=== PATIENT | female | born 1990 | race African-American/Black ===

== ENCOUNTER 2018-11-17 03:26 | Inpatient (IN) | payer SELFPAY ==
[2018-11-17 04:16] LABS: Hematocrit 33 % (33-41); Hemoglobin 10.2 g/dL (12.0-16.0)
[2018-11-17] MEDS ORDERED: Buffered Lidocaine 1% SYRIN* 1 ML/SYRINGE INTRADERM ONE (04:17)
[2018-11-17] MEDS ORDERED: Penicillin G Potassium IV* 5,000,000 UNITS in NS 0.9% 100 ML* 100 ML IVPB ONE (04:17)
[2018-11-17] MEDS ORDERED: Lactated Ringers 1000 ML Bag* 1,000 ML IV ONE ×2 (04:17→12:57)
[2018-11-17] MEDS ORDERED: Promethazine INJ(RESTRICTED)* 25 MG/ML 1 ML VIAL IV ONE (04:27)
--- NOTE | 2018-11-17 04:38 | HP ---
General Information - Reason for Visit IUP@41+2 in labor - General Information Maternal Age: 28 Grav: 1 Para: 0 SAB: 0 IEA: 0 Estimated Due Date: 11/08/18 Determined By: LMP Gestational Age in Weeks/Days: 41+2 Maternal Blood Type and Rh: O Positive - Results this Serology/RPR Result: Non-Reactive Rubella Result: Non-Immune HBsAg Result: Negative HIV Result: Negative GBS Culture Result: Positive Past Medical History Pertinent Past Medical History: See Records - Rubella non-immune Past Medical History Comment: Migraine Pertinent Past Surgical History: None Pertinent Family History: See Records Family History Comment: Father: asthma Mother: Diabetes, HTN - Antepartal Records Antepartal Records: Reviewed, Uncomplicated Review of Systems Constitutional: Uncomfortable CV Complaint: No Respiratory: Shortness of Breath: No Gastrointestinal: No Nausea/Vomiting Genitourinary: No Dysuria, No Bleeding, No Leaking Fluid Musculoskeletal: No Epigastric Pain, Contractions Neurological: No Headache, No Visual Changes Movement: Normal Exam Allergies/Adverse Reactions: Allergies codeine Allergy (Intermediate, Verified 11/17/18 04:07) Palpitations Vital Signs 11/17/18 04:16 Temperature 98.7 F Pulse Rate 79 Respiratory 20 Rate Blood Pressure 141/80 (mmHg) O2 Sat by Pulse 100 Oximetry Lab Values - Entire Visit: Laboratory Tests 11/17/18 11/17/18 03:58 03:58 Hgb 10.2 L Hct 33 Blood Type O Positive - Measurements Height: 5 ft 4.96 in Weight: 163 lb 2.273 oz Weight in lbs: 163.778956 Body Mass Index (BMI): 27.1 Pre- Weight: 163 lb 2.273 oz Weight Gained This : 0 lbs and 0 ozs - Exam Breast: Breast Exam Deferred CVA: No CVA Tenderness Extremities: No Edema Heart: Normal Rhythm/Heart Sounds HEENT: No Significant Findings Lungs: Clear Bilaterally Rectal: Rectal Exam Deferred Reflexes: DTR 2+ Thyroid: No Thyromegaly - Abdominal Exam Abdomen Exam: Non-Tender, Fundal Height Consistent with Dates - Ultrasound/Biophysical Profile Ultrasound Status: Not Done Targeted Exam Findings Estimated Weight: 7.5-8lbs Cervical Exam: 3cm - VE completed by RN Effacement: 100% Station: -2 Presenting Part: Vertex Membrane Status: Intact Bleeding/Discharge: None EFM Findings - External Monitor Findings Baseline Heart Rate: 135 External Monitor Findings: Accelerations Present, No Pattern of Variable or Late Decelerations, Variability Moderate External Monitor Findings Comment: No evidence of metabolic acidemia Contractions: Regular, Moderate, 45-90 Seconds, >90 Seconds - q2-3 Contraction Frequency: q6 Assessment/Plan - Assessment IUP@41+2 in labor GBS positive BPs 140s/80s - in pain/distress Rubella non-immune Regular contractions No evidence of metabolic acidemia IBOW - Obstetrical Risk Factors Obstetrical Risk Factors: GBS Positive, Post-Dates - Plan Plan: Antibiotic Prophylaxis, Admit - Anticipate Vaginal Delivery Plan Comment: Admit to L&D IV phenergan for therapeutic rest (allergy to Codeine) Abx for GBS prophylaxis Anticipate progression to - Date/Time of Admission Date of Admission: 11/17/18 Time of Admission: 04:00
[2018-11-17] MEDS: Lactated Ringers 1000 ML Bag* 1,000 ML IV SCH ×3 (04:56→23:42)
--- NOTE | 2018-11-17 07:33 | PN ---
Progress Note - Progress Note Date of Service: 11/17/18 Note: SOAP: Subjective: Pt uncomfortable with contractions. Able to sleep between contractions following phenergan IV push. at bedside. Pt states she feels pressure. Objective: VSS VE 4/100/-1, bulging bag FHR 135 Contractions q5-7 Assessment: Coping with contractions Making cervical change Abx infused for GBS prophylaxis Plan: Discussed risks vs benefits of nitrous oxide vs epidural. Pt is undecided at this point, but will likely opt for an epidural. VE PRN Anticipate progression to
[2018-11-17] MEDS: Penicillin G Potassium IV* 2,500,000 UNITS in NS 0.9% 100 ML* 100 ML IVPB SCH ×4 (09:19→21:35)
--- NOTE | 2018-11-17 09:46 | PN ---
Progress Note - Progress Note Date of Service: 11/17/18 Note: S: Ninfa is laboring in the tub, very uncomfortable with UCs but sleepy/able to rest in between. States she is feeling tired and would like to eat breakfast to get some energy. O: VS: B/P: 136/81, P: 85, RR: 18, T: 99.8 FHR: 150, moderate variability +accels, one isolated variable deceleration ( resolved with position change per RN) UCs: q2.5-3 minutes, moderate VE deferred second dose of PCN for GBS prophylaxis infusing A: IUP at 41 2/7 weeks Early labor P: Discussed pain management options, would like epidural after she has eaten breakfast Consider AROM after she is comfortable with epidural Continue prophylaxis for GBS per protocol Anticipate
[2018-11-17] MEDS ORDERED: OBEPIDURAL* 250 ML EPIDURAL ONE (12:09)
[2018-11-17] MEDS ORDERED: fentaNYL* 50 MCG/ML 2 ML VIAL (100 MCG VIAL) ONE (12:29)
[2018-11-17 12:34] LABS: Mean Corpuscular HGB Conc 32 g/dL (31-36); Mean Corpuscular Hemoglobin 24 pg (27-31); Mean Corpuscular Volume 77 fL (80-97); Mean Platelet Volume 11.6 fL (7.4-10.4); Platelet Count 209 10^3/uL (150-450); Red Blood Count 4.24 10^6 /uL (3.70-4.87); Red Cell Distribution Width 15 % (10.5-15); White Blood Count 14.3 10^3/uL (3.5-10.8)
[2018-11-17] MEDS ORDERED: Phenylephrine 40 MCG/ML SYRINGE IV PUSH PRN ×2 (12:57)
[2018-11-17] MEDS ORDERED: Famotidine TAB* 20 MG PO PRN (12:57)
[2018-11-17] MEDS ORDERED: Sodium Citrate/Citric Acid* 15 ML UDC PO PRN (12:57)
[2018-11-17] MEDS ORDERED: OBEPIDURAL* 250 ML EPIDURAL SCH (13:00)
[2018-11-17] MEDS ORDERED: Lactated Ringers 1000 ML Bag* 1,000 ML IV SCH (13:00)
[2018-11-17 13:19] LABS: ABS Basophils 0.1 10^3/ul (0-0.2); ABS Eosinophils 0 10^3/ul (0-0.6); ABS Lymphocytes 1.5 10^3/ul (1.0-4.8); ABS Neutrophils 11.7 10^3/ul (1.5-7.7); ABS Nucleated RBC 0 10^3/ul; Eosinophil % 0.1 %; Lymphocyte % 10.5 %; Nucleated Red Blood Cells % 0.1
--- NOTE | 2018-11-17 13:22 | PN ---
Progress Note - Progress Note Date of Service: 11/17/18 Note: S: Ninfa is resting comfortably after placement of CEI by Dr. Norris. Reports sensation in her thighs but not her abdomen. O: VS: B/P: 119/67, P: 77, RR: 18, T: 99.8 FHR: 140, moderate variability, prolonged deceleration lasting 11 minutes down to 85 bpm at lowest point while at bedside. UCs: q3-5 by palpation, not tracing well VE: 5.5/90/0 A: IUP at 41 2/7 weeks Category II FHR - resolved with position changes, 02 by mask, and placement of tristan catheter GBS positive P: Allow FHR to recover following deceleration prior to additional interventions Will re-assess in 30 minutes or sooner as needed
--- NOTE | 2018-11-17 13:38 | PN ---
Progress Note - Progress Note Date of Service: 11/17/18 Note: Quick note: FHR recovered from prolonged decel. 145, moderate variability, +accels, no decelerations UCs q 4-4.5 min Discussed AROM to encourage labor progress, Ninfa accepts VE: 5.5/90/0, vertex AROM of thin meconium Monitor for 30 minutes, will consider IV Pitocin Anticipate Dr. Valerio in-house and aware of pt condition/care plan
--- NOTE | 2018-11-17 14:51 | PN ---
Progress Note - Progress Note Date of Service: 11/17/18 Note: S: Sleeping through UCs, says she is unable to feel them. at bedside. O: B/P: 113/71 T: 98.8 R: 18 P: 89 FHR: 145, moderate variability, +accelerations, no decelerations UCs: q4-8 min, lasting 100-150s A: IUP at 41 2/7 weeks Category I FHR, no evidence of metabolic acidemia Early active labor P: Discussed augmentation with IV pitocin at length, including cost of medication. Patient agrees to trial. Initiate pitocin, titrate per protocol Anticipate
[2018-11-17] MEDS ORDERED: Oxytocin in LR* 20 UNITS/1,000 ML BAG IVPB SCH (15:00)
--- NOTE | 2018-11-17 16:51 | PN ---
Progress Note - Progress Note Date of Service: 11/17/18 Note: Comfortable with epidural. Pitocin at 4 mu/min. Contractions every 2-3 FHTs 145, mod variability, accels present Cervix: 7-8cm/100%, with ant lip, vtx +1 Will await full dilation, urge to push
--- NOTE | 2018-11-17 19:57 | PN ---
Progress Note - Progress Note Date of Service: 11/17/18 Note: Feeling pressure, with n/v contractions q 2-3, have decreased pitocin to 2mu/min Cervix: 8-9cm/100/vtx+1 Slow progress, will continue to monitor
--- NOTE | 2018-11-17 21:30 | PN ---
Progress Note - Progress Note Date of Service: 11/17/18 Note: painful spot L hip, has been self bolusing and changing position Cervix: 8-9 but vtx now asynclintic. Tried pushing for 2 contractions, vtx descended but cervix did not reduce Recommend bolusing epidural, get pt more comfortable Discussed possible need for CS if cervix remains
[2018-11-17] MEDS ORDERED: ROPIVACAINE 5 MG/ML 30 ML BTL (0.5%) ONE (21:57)
[2018-11-18] MEDS: Penicillin G Potassium IV* 2,500,000 UNITS in NS 0.9% 100 ML* 100 ML IVPB SCH ×2 (01:50→07:46)
--- NOTE | 2018-11-18 03:20 | PN ---
Progress Note - Progress Note Date of Service: 11/18/18 Note: Good relief after epidural bolus T99.5 FHT 145, mod variability Cervix: fully, vtx +3 at 0300 Pushing begun
[2018-11-18] MEDS ORDERED: Glycerin ADULT SUPP PR PRN (05:34)
[2018-11-18] MEDS ORDERED: Dibucaine 1% 28.35 GM TUBE PR PRN (05:34)
[2018-11-18] MEDS ORDERED: Misoprostol TAB* 200 MCG PR ONE (05:34)
[2018-11-18] MEDS ORDERED: Witch Hazel PAD* JAR TOPICAL PRN (05:34)
[2018-11-18] MEDS ORDERED: Acetaminophen TAB* 325 MG PO PRN (05:34)
[2018-11-18] MEDS ORDERED: Measles, Mumps,Rubella VACC* 0.5 ML/VIAL SUBCUT ONE (05:34)
[2018-11-18] MEDS ORDERED: Oxytocin in LR* 20 UNITS/1,000 ML BAG IVPB SCH (05:38)
--- NOTE | 2018-11-18 05:44 | PROCNOTE ---
[facility] [place] [facility] OB: Delivery Note - Delivery A Date of : 11/18/18 Time of : 04:55 [place] Sex: Female Weight at : 8 lb Score 1 Minute: 9 Score 5 Minutes: 9 Gestational Age in Weeks and Days at Delivery: 41 Weeks and 3 Days Delivery Method: Spontaneous Vaginal Labor: Spontaneous Did Patient attempt ?: N/A, No Previous Amniotic Fluid: Meconium Estimated Blood Loss: 500 Anesthesia/Analgesia: CEI for Labor Anesthesia Comment: Dr. Norris. Bolused by Dr. Szymanski Delivered By: Aysha Wooten - Nursery Level of Nursery: Regular/Bedside - Perineum Perineal Injury: Perineal Laceration, 1st Degree Perineal Injury Comment: repaired with 3-0ccg under 1% lidocaine local Perineal Repair: By Delivering Practioner - Events Delivery Events of Note: Pitocin During Labor, Protracted/Long Labor, Full Course of Antibiotics, Post- Bleeding - Meds Given - Additional Delivery Notes Additional Delivery Notes: SVB LFC, OA, over 1st degree perineal lac, after 1'57" 2nd stage. Infant pink with stimulation. Placenta aruna. Uterine atony with PPH controlled with massage, IV with pitocin, misoprostol per rectum. EBL 500cc. Mother and baby in good condition
[2018-11-18] MEDS ORDERED: Lactated Ringers 1000 ML Bag* 1,000 ML IV SCH (06:00)
[2018-11-18] MEDS: Ibuprofen TAB* 600 MG PO PRN ×2 (06:45→14:01)
[2018-11-18] MEDS: Docusate CAP* 100 MG PO SCH ×3 (10:07→21:32)
[2018-11-19] MEDS: Ibuprofen TAB* 600 MG PO PRN ×2 (00:08→08:38)
[2018-11-19 07:53] LABS: Hematocrit 24 % (33-41); Hemoglobin 7.7 g/dL (12.0-16.0); Mean Corpuscular HGB Conc 32 g/dL (31-36); Mean Corpuscular Hemoglobin 25 pg (27-31); Mean Corpuscular Volume 77 fL (80-97); Mean Platelet Volume 10.7 fL (7.4-10.4); Platelet Count 163 10^3/uL (150-450); Red Blood Count 3.14 10^6 /uL (3.70-4.87); Red Cell Distribution Width 15 % (10.5-15)
[2018-11-19] MEDS: Ferrous Gluconate TAB* 324 MG TAB PO SCH ×2 (08:38→20:05)
[2018-11-19] MEDS: Docusate CAP* 100 MG PO SCH ×3 (08:39→20:06)
--- NOTE | 2018-11-19 11:01 | PTEDU ---
Patient Name: SAHRA HASSAN SAHRA HASSAN selected video: BBOB: Nurturing Your Gorgeous &Growing Baby by to view on 11/19/2018 at 11:00:45 [id number]
--- NOTE | 2018-11-19 11:13 | PTEDU ---
Patient Name: SAHRA HASSAN SAHRA HASSAN selected video: BBOB: Bonding Through Infant Massage to view on 11/19/2018 at 11:12:3 0 [id number]
[2018-11-20] MEDS: Ibuprofen TAB* 600 MG PO PRN ×2 (03:42→09:44)
[2018-11-20 07:07] LABS: ABS Basophils 0 10^3/ul (0-0.2); ABS Eosinophils 0.3 10^3/ul (0-0.6); ABS Lymphocytes 2.1 10^3/ul (1.0-4.8); ABS Monocytes 0.9 10^3/ul (0-0.8); ABS Nucleated RBC 0 10^3/ul; Eosinophil % 2.4 %; Hematocrit 22 % (33-41); Lymphocyte % 18.6 %; Mean Corpuscular HGB Conc 32 g/dL (31-36); Mean Corpuscular Hemoglobin 24 pg (27-31); Mean Corpuscular Volume 77 fL (80-97); Mean Platelet Volume 10.4 fL (7.4-10.4); Nucleated Red Blood Cells % 0; Platelet Count 188 10^3/uL (150-450); Red Blood Count 2.86 10^6 /uL (3.70-4.87); Red Cell Distribution Width 16 % (10.5-15); White Blood Count 11.3 10^3/uL (3.5-10.8)
[2018-11-20 09:05] VITALS: BP 113/68
[2018-11-20] MEDS: Ferrous Gluconate TAB* 324 MG TAB PO SCH (09:44)
[2018-11-20] MEDS: Docusate CAP* 100 MG PO SCH (09:44)
--- NOTE | 2018-11-20 11:52 | PN ---
Progress Note - Progress Note Date of Service: 11/20/18 Note: Pt with anemia following hemorrhage. Yesterday her Hgb/ Hct went from 10.2/ 33 on admission to 7.7/ 24. Repeat today showed 7.0/22. Pt is ambulating without difficulty, denies dizziness. Vital signs are stable with no hypotension or tachycardia. is going well, and milk is already beginning to come in. Bleeding today is minimal. Pt counseled to continue iron BID, and to come to office for Hgb check in 1 week. Instructed on warning signs of excessive blood loss and other complications, and how and when to call. Plan discharge home today.
== END 2018-11-20 13:00 | disposition home or self-care (01) | DRG 806 ==
LOC: MCHOBOUT 03:26 → MCHOB 03:52
PROVIDERS: ADMIT Advanced Practice Midwife; ATTEND Advanced Practice Midwife
PROC: 10907ZC Drainage of Amniotic Fluid, Therapeutic from Products of Conception, Via Natural or Artificial Opening (ICD-10-PCS; principal; 2018-11-17)
PROC: 4A1HXCZ Monitoring of Products of Conception, Cardiac Rate, External Approach (ICD-10-PCS; 2018-11-17)
PROC: 10E0XZZ Delivery of Products of Conception, External Approach (ICD-10-PCS; 2018-11-18)
PROC: 0HQ9XZZ Repair Perineum Skin, External Approach (ICD-10-PCS; 2018-11-18)
DX: O48.0 Post-term pregnancy (principal); O72.1 Other immediate postpartum hemorrhage; Z37.0 Single live birth; O99.824 Streptococcus B carrier state complicating childbirth; O76 Abnormality in fetal heart rate and rhythm complicating labor and delivery; O77.0 Labor and delivery complicated by meconium in amniotic fluid; O70.0 First degree perineal laceration during delivery; O63.1 Prolonged second stage (of labor); O90.81 Anemia of the puerperium; Z3A.41 41 weeks gestation of pregnancy; Z88.5 Allergy status to narcotic agent
CPT/HCPCS: 36415; 85025; 85027; 86850; 86900; 86901; A9270-GY; J2540; J2550; J2795; J3010